=== PATIENT | male | born 1985 | race Two or more races ===

== ENCOUNTER 2023-07-28 19:18 | Emergency (ER) | payer OTHER ==
[~2023-07-28] VITALS: Ht 180.3 cm; Wt 90.7 kg
[2023-07-28] MEDS ORDERED: IBUPROFEN 400 MG TABLET ONE (20:47)
[2023-07-28] MEDS ORDERED: ACETAMINOPHEN 325 MG TABLET ONE (20:47)
[2023-07-28] MEDS: IBUPROFEN 400 MG TABLET PO ONE (20:55)
[2023-07-28] MEDS: ACETAMINOPHEN ES 500 MG TABLET PO ONE (20:55)
[2023-07-28 21:43] VITALS: BP 123/99; O2SAT 100
== END 2023-07-28 22:13 | disposition home or self-care (01) ==
LOC: ER 19:20
DX: S09.8XXA Other specified injuries of head, initial encounter (principal); V89.2XXA Person injured in unspecified motor-vehicle accident, traffic, initial encounter; Y93.89 Activity, other specified; Y92.89 Other specified places as the place of occurrence of the external cause; Y99.8 Other external cause status
CPT/HCPCS: A4606; A4663